=== PATIENT | male | born 1965 | race Caucasian/White ===

== ENCOUNTER 2017-07-05 17:48 | Observation (INO) ==
--- NOTE | 2017-07-05 18:38 | EKG Report ---
Stationary ECG Study [facility] Test Date: 07/05/2017 6:00:35 PM Pat Name: ANN SANDOVAL Department: Room: Gender: M Dermatology Physician Assistant: Brenda Calabrese : 1965 Requested by: Alex Moses Order Number: [id number] Reading MD: LINH MACK Intervals [place] Rate: 65 P: 38 FL: 172 QRS: 8 QRSD: 102 T: 57 QT: 417 QTc: 428 Interpretive Statements SINUS RHYTHM Electronically Signed On 07-05-17 20:16:48 CDT by LINH MACK [id number]
--- NOTE | 2017-07-05 19:41 | Emergency Department Note ---
Arrival - Arrival Chief Complaint: Chest Pain Stated Complaint: chest pain,facial pain ED Nursing Triage Note: c/o left chest pain radiating into left jaw onset approx 1700pm. Describes as sharp, intermittent. Denies shortness of breath, nausea, or diaphoresis. Mode of Arrival: Ambulatory Time Seen by Provider: 07/05/17 18:46 - History of Present Illness HPI Narrative: This is a 52-year-old white male who developed substernal chest pain radiating to his jaw associated with diaphoresis and shortness of breath which lasted for 1 hour. Through the summer the patient has noticed he has had less physical stamina than in the past. He had a similar presentation 6 years ago for which he underwent a cardiac catheterization after failing a stress test but no coronary artery disease was found. Ultimately that episode was found to be due to a gallbladder problem. The patient has hypertension and hyperlipidemia but is off his medications at this time. Allergies/Adverse Reactions: Allergies Allergy/AdvReac Type Severity Reaction Status Date / Time No Known Allergies Allergy Verified 07/05/17 18:00 Home Medications: Home Medications Medication Instructions Recorded Confirmed Type Citalopram Hydrobromide 20 mg PO QAM 07/05/17 07/05/17 History [Citalopram HBr] Omeprazole 40 mg PO QAM 07/05/17 07/05/17 History Review of System - Review of System Constitutional: Absent: fever, night sweats, weakness Eyes: Absent: redness, vision change Head/Ears/Nose/Throat: Absent: epistaxis, nasal drainage Respiratory: Absent: respiratory distress, wheezing Cardiovascular: Absent: chest pain, orthopnea Gastrointestinal: Absent: diarrhea, constipation, hematemesis Genitourinary male: Absent: hematuria, discharge, testicular mass Musculoskeletal: Absent: joint swelling, lower back pain, leg pain Skin: Absent: change in color, change in hair/nails, pruritus Neurological: Absent: numbness, paresthesias, confusion Psychiatric: Absent: suicidal thoughts, homicidal thoughts Endocrine: Absent: heat intolerance, polydipsia, polyuria Hematological/Lymphatic: Absent: easy bruising, lymphadenopathy Allergic/Immunologic: Absent: urticaria, itchy eyes Medical,Surgical,& Family Hx - Medical History Cardio: History of: Hypertension Endocrine: History of: Dyslipidemia Musculoskeletal: History of: Back/Neck Problems (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 The troponin is negative. The chest x-ray is normal. The vital signs are normal. The physical examination is normal. The hospitalist agreed to admit the patient to the hospital for serial cardiac enzymes and possible stress test. Results - Labs CBC & BMP: 07/05/17 18:14 07/05/17 18:14 Disposition Clinical Impression: Chest pain Disposition: Still a Patient Additional Instructions: The troponin is negative. The vital signs normal. The physical examination is normal chest x-ray is normal. The patient had another episode of chest pain while in the emergency department which spontaneously resolved. The case was discussed with the hospitalist who agreed to admit the patient for serial cardiac enzymes and EKG as well as a possible nuclear medicine stress test.
[2017-07-05] MEDS ORDERED: PANTOPRAZOLE 40 MG VIAL IV STA (19:45)
[2017-07-05] MEDS ORDERED: PANTOPRAZOLE 40 MG VIAL IV ONE (19:50)
[2017-07-05 19:51] LABS: Basophils # 0.1 10*3/uL (0.0-0.2); Basophils % 1.1 % (0.0-0.8); Eosinophils # 0.2 10*3/uL (0.0-0.87); Eosinophils % 3.5 % (0.00-10.9); Hematocrit 42.3 VOL% (42.0-52.0); Immature Granulocytes % 0.6 %; Immature Granulocytes Absolute 0.04 #; Lymphocytes # 2.5 10*3/uL (1.4-4.0); Lymphocytes % 37.7 % (21.2-54.2); Mean Corpuscular HGB Conc 35.5 GM/DL (32-36); Mean Corpuscular Hemoglobin 31 PG (27-34); Mean Corpuscular Volume 87.4 FL (87-102); Mean Platelet Volume 10.5 FL (9.6-12.0); Monocytes # 0.5 10*3/uL (0.11-0.8); Monocytes % 8.1 % (1.7-12.7); Neutrophils # 3.3 10*3/uL (1.4-7.4); Platelet Count 285 T/CUMM (130-400); Red Blood Count 4.84 MC/CUMM (3.8-5.5); Red Cell Distribution Width 12.7 % (9.3-17.3); White Blood Count 6.6 T/CUMM (4-12)
[2017-07-05 20:10] LABS: Alanine Aminotransferase 29 U/L (16-61); Albumin 4.1 G/DL (3.4-5.0); Alkaline Phosphatase 96 U/L (45-117); Aspartate Amino Transferase 24 U/L (0-37); Blood Urea Nitrogen 12 MG/DL (7-18); Calcium 9.1 MG/DL (8.5-10.1); Glucose 101 MG/DL (74-106); Osmolality,Calculated 276.5 MOS/KG (273-304); Potassium 3.5 MMOL/L (3.5-5.1); Sodium 139 MMOL/L (136-145); Total Protein 7.8 G/DL (6.4-8.3); Troponin I Only < 0.015 NG/ML (0.00-0.045)
--- NOTE | 2017-07-05 21:56 | XRay Report ---
Exam: XR chest 2V Indication: Midline chest pain, cardiomegaly Comparison study: None Findings: The cardiac silhouette is mildly enlarged. There is also suggestion of mild tortuosity of descending thoracic aorta. Punctate calcific density in the right suprahilar region may represent a calcified lymph node or calcified granulomatous lesion. There is no focal consolidation, pneumothorax or pleural effusion identified. Impression: No acute cardiopulmonary process. PROCEDURE INTERPRETED AT [facility] DEPARTMENT OF RADIOLOGY Final Report Signed by: Hunter Shetty
[2017-07-05] MEDS ORDERED: ACETAMINOPHEN 325 MG TABLET PO PRN (22:30)
[2017-07-05] MEDS ORDERED: ONDANSETRON 4 MG/2 ML VIAL IV PRN (22:30)
[2017-07-05] MEDS ORDERED: hydrALAZINE 20 MG/1 ML VIAL IV PRN (22:50)
[2017-07-05] MEDS ORDERED: NITROGLYCERIN SL 0.4 MG TABLET SL PRN (22:59)
[2017-07-05] MEDS ORDERED: CLOPIDOGREL 75 MG TABLET PO STA (23:06)
[2017-07-05] MEDS ORDERED: ASPIRIN EC 325 MG TABLET PO STA (23:06)
[2017-07-05] MEDS ORDERED: CLOPIDOGREL 75 MG TABLET ONE (23:08)
[2017-07-05] MEDS ORDERED: ASPIRIN EC 325 MG TABLET PO ONE (23:08)
--- NOTE | 2017-07-05 23:23 | Hospitalist History & Physical ---
<Laura Mabry [place] - Last Filed: 07/05/17 23:01> Assessment and Plan - Time spent with patient Time spent with patient: Greater than 30 minutes (1) Chest pain Status: Acute Assessment and plan: Admit to hospitalist services. Monitored bed. Consult cardiology. Troponin <0.015. EKG: normal sinus rhythm. CXR: no acute cardiopulmary process. Plavix 75 mg PO now and daily. ASA 325 mg PO now. Continue with 81 mg PO daily. Obtain D-dimer. Serial troponins. Serial EKGs. CBC, BMP, TSH/Free T4, HA1C, and Lipid panel in am. O2 per protocol. This patient is a full code. Current Visit: Yes (2) Hypertension Status: Acute Assessment and plan: He's been off of is BP meds for about 2 years. BP was 173/113 initially Hydralazine 10 mg IV Q6 hours PRN for BP >140/90. Monitor. Consider restarting on BP meds. Current Visit: Yes (3) DVT prophylaxis Status: Acute Assessment and plan: Lovenox 1 mg/kg BID. Current Visit: Yes History of Present Illness Chief complaint: chest pain History of present illness: Mr. Coulter is a 52 year old male with a past medical history significant for hypertension, sepsis, parasite infection, and heat stroke and a past surgical history significant for cardiac catheterization (negative for CAD), cholecystectomy and tonsillectomy who presented to the emergency department at [facility] with complaints of left-sided chest pain radiating to the jaw. Symptom onset was around 1700 today. Pain was described as heavy, squeezing, and very sharp and was rated 8 out of 10 on pain scale. Mr. Coulter reports that the pain was intermittent for about 1 hour with each episode lasting about 1-2 minutes. After about 15 minutes of intermittent pain, the pain began to radiate to his lower jaw, and he developed sweaty palms. He felt it was difficult to take a good breath because of the intensity of the pain. He denies any associated nausea or vomiting. Mr. Coulter reports that he used to take medication for HTN but has not taken it in the last 2 years after moving to [place]. He reports that he saw Dr. Vaughn after moving here who took him off of his BP and cholesterol meds stating that he did not need them. He has not established with any other PCP since then. His work up in the ED, including troponin, EKG and CXR was negative for any acute cardiac process. Currently, he is lying in bed, awake, alert and oriented x 3 and denies any pain, however he does report having one other 1-2 minute episode of pain that occurred about 20 minutes prior to my arrival. Hosptialist services were consulted, and the patient will be admitted for observation to a monitored bed for further evaluation and treatment. 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 Absent: chills, fever(s), lethargy, malaise, weakness - EENT Eyes: Absent: blurry vision, diplopia, loss of vision Ears: Absent: decreased hearing, ear discharge, ear pain Nose, mouth and throat: Absent: headache(s), nasal congestion, sore throat - Cardiovascular Cardiovascular: Present: chest pain at rest, radiating jaw, neck or arm pain, other (difficult to take a breath). Absent: edema, lightheadedness, palpitations - Respiratory Respiratory: Absent: cough, dyspnea, wheezing - Gastrointestinal Gastrointestinal: Absent: abdominal pain, constipation, diarrhea, nausea, vomiting - Genitourinary Genitourinary: Absent: difficulty urinating, dysuria, flank pain, urinary frequency - Musculoskeletal Musculoskeletal: Present: back pain. Absent: joint swelling, muscle weakness, myalgias - Neurological Neurological: Absent: confusion, dizziness, numbness, paresthesias, syncope - Psychiatric Psychiatric: Absent: anxiety, depression - Endocrine Endocrine: Absent: cold intolerance, polydipsia, polyphagia, polyuria - Hematologic/Lymphatic Hematologic/Lymphatic: Absent: easy bleeding, easy bruising Exam - Constitutional Vitals: Period Temp Pulse Resp BP Sys/Chacon Pulse Ox Last 24 Hr 98.4 F-98.4 F 56-75 16-24 139-173/88-113 99-99 Exam: Constitutional System: Afebrile. Awake, alert and oriented x 3. No distress. No tremulousness. Head: Normocephalic, atraumatic. Ears, Nose and Throat System: No pain or tenderness. No epistaxis or discharge Eyes System: Pupils equal, round, and reactive. Extraocular muscles intact. Neck: Supple, without adenopathy, No jugular venous distention. No thyromegaly, neck mass, or prior surgery apparent. Respiratory System: Chest clear to auscultation. Cardiovascular System: Heart with regular rate and rhythm. No murmur. GI System: Abdomen soft, nontender. Normo active bowel sounds present. Musculoskeletal System: Limbs with no pedal edema. Full distal pulses. Normal capillary refill. Neurological System: No discernable sensory deficit. No aphasia Psychiatric System: Conversation is rational Results - Labs CBC & BMP: 07/05/17 18:14 07/05/17 18:14 Lab Results: I have reviewed the past 24 hour labs - Diagnostic Findings Procedure: Chest x-ray: report reviewed by me (Report reviewed by me. No acute cardiopulmonary process.) <Chris Charles - Last Filed: 07/06/17 00:14> Assessment and Plan (1) Chest pain Status: Acute Assessment and plan: Testing 123 I saw and examined the patient in conjunction with nurse practitioner Scar Carvalho. As above he has a history of having a negative heart cath 8 years ago according to the patient done at [facility]. We do not have these records. His chest pain started around 5 PM and lasted about an hour. He describes it as "squeezing" and "very tight." It radiated to his jaw. He said his hands broke out in a sweat. Workup in ER was unremarkable including EKG and troponin 1. Despite his history of a negative heart cath which we do not have documented his story is very worrisome for true acute coronary syndrome. I agree with hospitalization, telemetry, serial troponins, aspirin, Plavix, Lovenox. His heart rate is 55 and would not tolerate a beta-gene very well. BP was elevated on some readings up to 170 systolic in ER and 160 on the floor. Blood pressure I got just now was 140/96. He has a history of hyper hypertension since his 20s and was on blood pressure medication for many years but stopped recently. He was told is most likely going to need to go back on it. Current Visit: Yes History of Present Illness History of present illness: Mr. Coulter is a 52 year old male Exam - Constitutional Vitals: Period Temp Pulse Resp BP Sys/Chacon Pulse Ox Last 24 Hr 98.4 F-98.4 F 56-75 16-24 139-173/88-113 99-99 Results - Labs CBC & BMP: 07/05/17 18:14 07/05/17 18:14
[2017-07-06] MEDS ORDERED: ENOXAPARIN 100 MG/ML SYRINGE SUBCUT SCH (01:00)
[2017-07-06 04:20] LABS: Basophils # 0.1 10*3/uL (0.0-0.2); Basophils % 1.1 % (0.0-0.8); Eosinophils # 0.4 10*3/uL (0.0-0.87); Eosinophils % 5.5 % (0.00-10.9); Hematocrit 40.4 VOL% (42.0-52.0); Hemoglobin 14.5 GM/DL (14.0-18.0); Immature Granulocytes % 0.4 %; Immature Granulocytes Absolute 0.03 #; Lymphocytes % 41.7 % (21.2-54.2); Mean Corpuscular HGB Conc 35.9 GM/DL (32-36); Mean Corpuscular Hemoglobin 31 PG (27-34); Mean Corpuscular Volume 86.9 FL (87-102); Monocytes # 0.7 10*3/uL (0.11-0.8); Monocytes % 9.8 % (1.7-12.7); Neutrophils # 2.9 10*3/uL (1.4-7.4); Neutrophils % 41.5 % (38.7-73.9); Platelet Count 268 T/CUMM (130-400); Red Blood Count 4.65 MC/CUMM (3.8-5.5); Red Cell Distribution Width 12.7 % (9.3-17.3); White Blood Count 7.1 T/CUMM (4-12)
[2017-07-06 05:01] LABS: Calcium 8.8 MG/DL (8.5-10.1); Magnesium 2.5 MG/DL (1.8-2.4); Osmolality,Calculated 281.1 MOS/KG (273-304); Potassium 3.3 MMOL/L (3.5-5.1); Risk Ratio 5.36; Thyroid Stimulating Hormone 1.62 uIU/ml (0.358-3.74); VLDL CHOLESTEROL 55.2 MG/DL
--- NOTE | 2017-07-06 06:39 | EKG Report ---
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
--- NOTE | 2017-07-06 06:39 | EKG Report ---
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
[2017-07-06] MEDS ORDERED: CLOPIDOGREL 75 MG TABLET PO SCH (09:00)
[2017-07-06] MEDS ORDERED: ENOXAPARIN 40 MG/0.4 ML SYRINGE SUBCUT SCH (09:00)
[2017-07-06] MEDS ORDERED: PANTOPRAZOLE 40 MG TABLET PO SCH (09:00)
[2017-07-06] MEDS ORDERED: CITALOPRAM 20 MG TABLET PO SCH (09:00)
[2017-07-06] MEDS ORDERED: ASPIRIN EC 81 MG TABLET PO SCH (09:00)
--- NOTE | 2017-07-06 09:33 | Hospitalist Progress Note ---
Assessment and Plan (1) Hyperlipidemia Status: Acute Assessment and plan: Cholesterol 241, LDL 158, and Triglycerides 276. I have started him on atorvastatin 40 mg PO QHS. Current Visit: Yes Qualifiers: Hyperlipidemia type: unspecified Qualified Code(s): E78.5 - Hyperlipidemia , unspecified (2) Chest pain Status: Acute Assessment and plan: Resolved. Troponins have been normal. Cardiology consult pending. Current Visit: Yes (3) Hypertension Status: Acute Assessment and plan: BP today is 126/84. Current Visit: Yes Qualifiers: Hypertension type: essential hypertension Qualified Code(s): I10 - Essential (primary) hypertension (4) Hypokalemia Status: Acute Assessment and plan: Potassium today is3.3. I have begun KCl 40 mEq PO daily. Current Visit: Yes Hospitalist: Subjective Interval history: Patient was admitted to the hospital last night with chest pain. Serial troponins have been normal. He underwent cardiac evaluation 7 years ago with an abnormal stress nuclear test and a normal cardiac cath. He is comfortable now. Exam - Constitutional Vitals: Period Temp Pulse Resp BP Sys/Chacon Pulse Ox Last 24 Hr 97.3 F-98.4 F 55-75 16-24 126-173/82-113 93-99 General appearance: no acute distress - Head Head exam: Present: normal inspection - Neck Neck exam: Present: normal inspection - Respiratory Respiratory exam: Present: clear to auscultation bilaterally - Cardiovascular Cardiovascular exam: Present: regular rate and rhythm - GI/Abdominal GI/Abdominal exam: Present: normal bowel sounds, soft, other (Nontender.) - Extremities Exam Extremities exam: Present: normal inspection - Skin Skin exam: Present: normal color, warm, intact Results - Labs CBC & BMP: 07/06/17 03:51 07/06/17 03:51
--- NOTE | 2017-07-06 16:21 | Discharge Summary ---
Hospital Course - Hospital Course Hospital Course: Patient was admitted to the hospital last night with chest pain. Serial troponins have been normal. He underwent cardiac evaluation 7 years ago with an abnormal stress nuclear test and a normal cardiac cath. He experienced no further episodes of chest pain in the hospital. He was seen in consultation by Cardiology. Patient declined any further testing and asked to be discharged. Diagnosis - Discharge Diagnosis (1) Hyperlipidemia Status: Chronic (2) Chest pain Status: Acute (3) Hypertension Status: Chronic (4) Hypokalemia Status: Acute Discharge Plan - Discharge Data Disposition: Disch To Home/Self Care Condition at Discharge: Stable Discharge Diet: advance to your usual diet Activity: resume usual activities as tolerated - Discharge Medications Continue Citalopram Hydrobromide [Citalopram HBr] 20 mg PO QAM Omeprazole 40 mg PO QAM - Follow Up or Referral - Forms/Instructions Exam - Constitutional Vitals: Period Temp Pulse Resp BP Sys/Chacon Pulse Ox Last 24 Hr 97.3 F-98.4 F 55-75 16-24 126-173/82-113 93-99 Discharge Results Procedures and tests throughout hospitalization: Pending Orders 07/07/17 04:00 Basic Metabolic Panel IN AM Labs on day of discharge: Labs from last 24 hours 07/06/17 07/06/17 07/06/17 03:51 03:51 03:51 WBC RBC Hgb Hct MCV MCH MCHC RDW Plt Count MPV Neut % (Auto) Lymph % (Auto) Chase % (Auto) Eos % (Auto) Baso % (Auto) Neut # (Auto) Lymph # (Auto) Chase # (Auto) Eos # (Auto) Baso # (Auto) Immature Gran % Nucleated RBC % Immature Gran # Nucleated RBCs # Immature Plt Fraction D-Dimer, Quantitative Sodium Potassium Chloride Carbon Dioxide Anion Gap BUN Creatinine GFR Calculation BUN/Creatinine Ratio Glucose Hemoglobin A1c 6.1 Calculated Osmolality Calcium Magnesium Total Bilirubin AST ALT Alkaline Phosphatase Troponin I < 0.015 Total Protein Albumin Globulin Albumin/Globulin Ratio Triglycerides Cholesterol LDL Cholesterol VLDL Cholesterol HDL Cholesterol Heart Disease Risk Ratio Lipase Free T4 0.86 TSH 3rd Generation 07/06/17 07/06/17 07/06/17 03:51 03:51 00:54 WBC 7.1 RBC 4.65 Hgb 14.5 Hct 40.4 L MCV 86.9 L MCH 31 MCHC 35.9 RDW 12.7 Plt Count 268 MPV 10.0 Neut % (Auto) 41.5 Lymph % (Auto) 41.7 Chase % (Auto) 9.8 Eos % (Auto) 5.5 Baso % (Auto) 1.1 H Neut # (Auto) 2.9 Lymph # (Auto) 3.0 Chase # (Auto) 0.7 Eos # (Auto) 0.4 Baso # (Auto) 0.1 Immature Gran % 0.4 Nucleated RBC % 0.0 Immature Gran # 0.03 Nucleated RBCs # 0.00 Immature Plt Fraction 0.0 D-Dimer, Quantitative Sodium 142 Potassium 3.3 L Chloride 105 Carbon Dioxide 31 Anion Gap 9.3 BUN 11 Creatinine 1.00 GFR Calculation 109 BUN/Creatinine Ratio 11.00 Glucose 104 Hemoglobin A1c Calculated Osmolality 281.1 Calcium 8.8 Magnesium 2.5 H Total Bilirubin AST ALT Alkaline Phosphatase Troponin I < 0.015 Total Protein Albumin Globulin Albumin/Globulin Ratio Triglycerides 276 H Cholesterol 241 H LDL Cholesterol 158.0 VLDL Cholesterol 55.2 HDL Cholesterol 45 Heart Disease Risk Ratio 5.36 Lipase Free T4 TSH 3rd Generation 1.620 07/06/17 07/05/17 07/05/17 00:54 18:14 18:14 WBC 6.6 RBC 4.84 Hgb 15.0 Hct 42.3 MCV 87.4 MCH 31 MCHC 35.5 RDW 12.7 Plt Count 285 MPV 10.5 Neut % (Auto) 49.0 Lymph % (Auto) 37.7 Chase % (Auto) 8.1 Eos % (Auto) 3.5 Baso % (Auto) 1.1 H Neut # (Auto) 3.3 Lymph # (Auto) 2.5 Chase # (Auto) 0.5 Eos # (Auto) 0.2 Baso # (Auto) 0.1 Immature Gran % 0.6 Nucleated RBC % 0.0 Immature Gran # 0.04 Nucleated RBCs # 0.00 Immature Plt Fraction 0.0 D-Dimer, Quantitative <= 0.5 Sodium 139 Potassium 3.5 Chloride 101 Carbon Dioxide 30 Anion Gap 11.5 BUN 12 Creatinine 1.00 GFR Calculation 106 BUN/Creatinine Ratio 12.00 Glucose 101 Hemoglobin A1c Calculated Osmolality 276.5 Calcium 9.1 Magnesium Total Bilirubin 0.50 AST 24 ALT 29 Alkaline Phosphatase 96 Troponin I < 0.015 Total Protein 7.8 Albumin 4.1 Globulin 3.7 H Albumin/Globulin Ratio 1.1 Triglycerides Cholesterol LDL Cholesterol VLDL Cholesterol HDL Cholesterol Heart Disease Risk Ratio Lipase 179.0 Free T4 TSH 3rd Generation DS: Provider Date of admission: 07/05/17 22:23 Primary care physician: . No PCP Attending physician on admission: Chris Charles MD Consults: 07/06/17 02:29 Consult to Physician [CONS] Routine Comment: Chest pain Consulting Provider: Stefania Diaz Discharging clinician: Valentin Machado
[2017-07-06 16:24] VITALS: BP 131/90
--- NOTE | 2017-07-06 18:25 | Cardiology Consult Note ---
I, Stacy Wade RN, am scribing for, and in the presence of, Colin Vargas MD 18:22. Assessment and Plan - Time spent with patient Time spent with patient: Greater than 30 minutes (Due to assessment, planning, documentation, medication review) (1) Chest pain Status: Acute Assessment and plan: The patient's chest pain has some typical and some atypical features. He had a heart cath done 7 years ago which showed minimal disease. It could have change. However with his hour-long no chest pain yesterday going to his jaw and left chest he is enzymes were negative and EKG is negative My assessment it could be cardiac but it could be GI or muscle skeletal Plan/recommend: I agree with repleting potassium with KCl, p.o. I discussed with the patient and his about doing a heart cath or an outpatient treadmill/Cardiolite. They decline a heart cath. They thought about it and initially plan to do an outpatient treadmill However after thought about they want to see the doctor back in [place] on Tuesday and make decisions. I offered to set up a treadmill for early next week but they decline. They will call if needed. Agree with treating his blood pressure , get under control-may be the losartan HCT which she has been on in the past will be good I would continue aspirin 81 mg daily I would suggest treating for chest wall pain-gabapentin, Tylenol, tramadol in low doses Treat GI he is on omeprazole, increase omeprazole to twice a day.--Consider adding some as needed esophageal spasm medications such as levbid Check lipids and treat per guidelines. He will do that with his primary care physician in [place] I am suspicious he may have sleep apnea. I recommend he have a sleep evaluation and consideration of a sleep study. There were discussed that with their primary care physician in [place]. Thank you for allowing me to participate in this patient's care. I can be available to see them again in the future if they are so inclined to follow with me. Otherwise I can be available as needed. (2) Hypertension Status: Chronic Qualifiers: Hypertension type: essential hypertension Qualified Code(s): I10 - Essential (primary) hypertension (3) Hyperlipidemia Status: Chronic Qualifiers: Hyperlipidemia type: unspecified Qualified Code(s): E78.5 - Hyperlipidemia , unspecified (4) Hypokalemia Status: Acute History of Present Illness - Data of Consult Patient: new to practice Consult date: 07/06/17 Requesting Physician: Laura Mabry Primary care physician: Guanakito Vaughn - Consult Narrative Reason for consult: Chest pain History of present illness: Runner On: None PCP: None Mr. Coulter is a 52 year old male who is not routinely followed by a biomass production manager. He saw a biomass production manager in [place] about 7 years ago after he was found to have an abnormal EKG and abnormal stress test. He says the cath was negative and he didn't require any stents. He reports he has previously been on Hyzaar for hypertension and atorvastatin for dyslipidemia as well as receiving testosterone injections. He admitted to this area about [address] Vaughn. He says at that time he had lost some weight and Dr. Vaughn stopped all of his medications. He has not followed back up with him and is not taking these medicines at this time. He had a spinal block about a year and a half ago and developed sepsis afterward. Other surgical history includes tonsillectomy and cholecystectomy. Family history is positive for father with stroke, siblings with diabetes and hypertension, and a child with cancer. He is a former smoker, reports he quit smoking when he was 25 years old. Except for being fatigued over the last several weeks, he states he has been in his normal state of health until yesterday. Around 5:00 he developed a squeezing pain to the left side of his chest that radiated to his jaw. He also reports being short of breath with this pain and having sweaty palms. He denies any nausea, vomiting, dizziness, or palpitations. He says it was an 8 or 9 on a scale of 1-10. It came on him at rest and activity does not seem to affect it. He also noted the left side of his face was numb yesterday. He presented to the emergency department for further evaluation. After arrival in the emergency department he reports the pain did improve some after laying down. Upon arrival to the emergency room, his blood pressure was elevated at 173/113. EKG showed sinus rhythm with heart rate of 65 and showed no evidence of acute IN. Chest x-ray was without any acute cardiopulmonary process. Troponin has been negative 3. D-dimer was negative. He reports he has had no complete relief from this pain. At this time he is not having the same squeezing type pain. He describes it now as a soreness that is a 2 or 3 on a scale of 1-10. He says this soreness has been constant this morning. The pain is not reproducible with movement of his arm or palpation. He does report that it is worse when he takes a deep breath. Potassium this morning is 3.3, he has been started on K-Dur 40 p.o. daily. His total cholesterol and triglycerides are elevated. CC: Valentin Machado - Home Medications and Allergies Home Medications: Home Medications Medication Instructions Recorded Confirmed Type Citalopram Hydrobromide 20 mg PO QAM 07/05/17 07/05/17 History [Citalopram HBr] Omeprazole 40 mg PO QAM 07/05/17 07/05/17 History Allergies/Adverse Reactions: Allergies Allergy/AdvReac Type Severity Reaction Status Date / Time No Known Allergies Allergy Verified 07/05/17 18:00 - Constitutional Constitutional: Present: as per HPI - EENT Nose, mouth and throat: Absent: dysphagia, epistaxis, neck pain - Cardiovascular Cardiovascular: Present: chest pain at rest, diaphoresis, dyspnea, radiating jaw , neck or arm pain. Absent: edema, lightheadedness, orthopnea, palpitations - Respiratory Respiratory: Present: dyspnea. Absent: cough, hemoptysis, wheezing - Gastrointestinal Gastrointestinal: Absent: abdominal pain, constipation, cramping, hematemesis, hematochezia, melena, nausea, vomiting - Genitourinary Genitourinary: Absent: dysuria, hematuria - Musculoskeletal Musculoskeletal: Absent: back pain, limited range of motion, muscle weakness - Neurological Neurological: Absent: abnormal gait, abnormal speech, confusion, dizziness, frequent falls, headache(s), syncope - Psychiatric Psychiatric: Absent: anxiety, depression - Endocrine Endocrine: Present: fatigue. Absent: cold intolerance, heat intolerance - Hematologic/Lymphatic Hematologic/Lymphatic: Absent: easy bleeding, easy bruising Medical,Surgical,& Family Hx - Medical History Cardio: History of: Hypertension Psychological: History of: Anxiety Disorders Endocrine: History of: Dyslipidemia Respiratory: History of: Pneumonia Genitourinary: History of: Prostate Problems (chronic infection) Gastrointestinal: History of: GERD, GI Problems (parasite infection) Musculoskeletal: History of: Back/Neck Problems (had spinal block 1.5 years ago , developed sepsis) Other: History of: Anesthesia Reactions (was unable to void after surgery) - Surgical History Cardiac Surgeries: Sugical HX of: Cardiac Catheterization HEENT Surgeries: Surgical HX of: Tonsilectomy & Adenoidectomy Abdominal Surgeries: Surgical HX of: Cholecystectomy - Family History Family History: Reports;: Family Cancer (Child), Family Diabetes (Siblings), Family Hypertension (Siblings), Family Stroke (Father) - Social History Smoking Status: Former smoker (quit when he was 25 y/o) Have you smoked in the last 12 months: No Frequency of Alcohol Use: Occasionally Type of Drug Use: None Marital Status: Lives With:: Spouse Functional capacity: independent ambulation Physical Examination Vital Signs Temp Pulse Resp BP Pulse Ox 98.4 F 75 20 173/113 99 07/05/17 17:55 07/05/17 17:55 07/05/17 17:55 07/05/17 17:55 07/05/17 17:55 Exam: No chest wall tenderness or tenderness to pressure of the neck, shoulders, or abdomen General: Present: Appears Well, No Apparent Distress HEENT: Present: PERRL, Mucus Membranes Moist Neck: Present: Supple Neck, Midline Trachea, No Bruit Cardiac: Present: Regular Rhythm, No Murmur, Bradycardia Lungs: Present: Normal Breath Sounds, No Wheeze, Rales, Rhonchi Neuro: Absent: Resting Tremor, Essential Tremor Abdomen: Present: Soft, Active Bowel Sounds, Non-Tender. Absent: Distended Skin: Absent: Rash, Suspicious Lesions Musculoskeletal: Present: No Pain, Normal Range of Motion Gait: Present: Normal Gait Extremities: Present: Normal Gait, No Edema, Normal Upper Extr. Pulses, Normal Lower Extr. Pulses Result/EKG - Labs CBC & BMP: 07/06/17 03:51 07/06/17 03:51 Lab Results: I have reviewed the past 24 hour labs Labs: Laboratory Results - last 24 hr 07/05/17 07/05/17 07/06/17 18:14 18:14 00:54 WBC 6.6 RBC 4.84 Hgb 15.0 Hct 42.3 MCV 87.4 MCH 31 MCHC 35.5 RDW 12.7 Plt Count 285 MPV 10.5 Neut % (Auto) 49.0 Lymph % (Auto) 37.7 [place] % (Auto) 8.1 Eos % (Auto) 3.5 Baso % (Auto) 1.1 H Neut # (Auto) 3.3 Lymph # (Auto) 2.5 [place] # (Auto) 0.5 Eos # (Auto) 0.2 Baso # (Auto) 0.1 Immature Gran % 0.6 Nucleated RBC % 0.0 Immature Gran # 0.04 Nucleated RBCs # 0.00 Immature Plt Fraction 0.0 D-Dimer, Quantitative <= 0.5 Sodium 139 Potassium 3.5 Chloride 101 Carbon Dioxide 30 Anion Gap 11.5 BUN 12 Creatinine 1.00 GFR Calculation 106 BUN/Creatinine Ratio 12.00 Glucose 101 Hemoglobin A1c Calculated Osmolality 276.5 Calcium 9.1 Magnesium Total Bilirubin 0.50 AST 24 ALT 29 Alkaline Phosphatase 96 Troponin I < 0.015 Total Protein 7.8 Albumin 4.1 Globulin 3.7 H Albumin/Globulin Ratio 1.1 Triglycerides Cholesterol LDL Cholesterol VLDL Cholesterol HDL Cholesterol Heart Disease Risk Ratio Lipase 179.0 Free T4 TSH 3rd Generation 07/06/17 07/06/17 07/06/17 00:54 03:51 03:51 WBC 7.1 RBC 4.65 Hgb 14.5 Hct 40.4 L MCV 86.9 L MCH 31 MCHC 35.9 RDW 12.7 Plt Count 268 MPV 10.0 Neut % (Auto) 41.5 Lymph % (Auto) 41.7 [place] % (Auto) 9.8 Eos % (Auto) 5.5 Baso % (Auto) 1.1 H Neut # (Auto) 2.9 Lymph # (Auto) 3.0 [place] # (Auto) 0.7 Eos # (Auto) 0.4 Baso # (Auto) 0.1 Immature Gran % 0.4 Nucleated RBC % 0.0 Immature Gran # 0.03 Nucleated RBCs # 0.00 Immature Plt Fraction 0.0 D-Dimer, Quantitative Sodium 142 Potassium 3.3 L Chloride 105 Carbon Dioxide 31 Anion Gap 9.3 BUN 11 Creatinine 1.00 GFR Calculation 109 BUN/Creatinine Ratio 11.00 Glucose 104 Hemoglobin A1c Calculated Osmolality 281.1 Calcium 8.8 Magnesium 2.5 H Total Bilirubin AST ALT Alkaline Phosphatase Troponin I < 0.015 Total Protein Albumin Globulin Albumin/Globulin Ratio Triglycerides 276 H Cholesterol 241 H LDL Cholesterol 158.0 VLDL Cholesterol 55.2 HDL Cholesterol 45 Heart Disease Risk Ratio 5.36 Lipase Free T4 TSH 3rd Generation 1.620 09/06/17 09/06/17 09/06/17 03:51 03:51 03:51 WBC RBC Hgb Hct MCV MCH MCHC RDW Plt Count MPV Neut % (Auto) Lymph % (Auto) [place] % (Auto) Eos % (Auto) Baso % (Auto) Neut # (Auto) Lymph # (Auto) [place] # (Auto) Eos # (Auto) Baso # (Auto) Immature Gran % Nucleated RBC % Immature Gran # Nucleated RBCs # Immature Plt Fraction D-Dimer, Quantitative Sodium Potassium Chloride Carbon Dioxide Anion Gap BUN Creatinine GFR Calculation BUN/Creatinine Ratio Glucose Hemoglobin A1c 6.1 Calculated Osmolality Calcium Magnesium Total Bilirubin AST ALT Alkaline Phosphatase Troponin I < 0.015 Total Protein Albumin Globulin Albumin/Globulin Ratio Triglycerides Cholesterol LDL Cholesterol VLDL Cholesterol HDL Cholesterol Heart Disease Risk Ratio Lipase Free T4 0.86 TSH 3rd Generation - Diagnostic Findings Procedure: Chest x-ray: report reviewed by me - EKG EKG results: interpreted by me EKG shows: bradycardia, sinus rhythm Specialty Discharge - Follow Up or Referrals Follow up with: Colin Vargas MD [Physician] - (FOLLOW UP NEEDED. ) I, Colin Vargas MD, personally performed the services described in this documentation, ascribed by Stacy Wade RN in my presence, and it is both accurate and complete [id number] .
[2017-07-06] MEDS ORDERED: ATORVASTATIN 40 MG TABLET PO SCH (21:00)
[2017-07-07] MEDS ORDERED: POTASSIUM CHLORIDE 20 MEQ TABLET PO SCH (09:00)
== END 2017-07-06 17:11 | disposition home or self-care (01) ==
LOC: N.ED 17:48 → N.EDINP 17:48 → SUATTDRO 22:23 → N.2E 23:25
PROVIDERS: ADMIT Family Medicine